=== PATIENT | female | born 1985 | race Caucasian/White ===

== ENCOUNTER 2022-06-12 14:01 | Emergency (ER) | payer MEDICAID ==
[~2022-06-12] VITALS: Ht 165.1 cm; Wt 104.0 kg
[2022-06-12 18:56] LABS: CLARITY URINE CLEAR (CLEAR); COLOR URINE DARK YELLOW (YELLOW); KETONES URINE NEGATIVE (NEGATIVE); LEUKOCYTE ESTERASE URINE 3+ (NEGATIVE); NITRITE URINE POSITIVE (NEGATIVE); OCCULT BLOOD URINE 1+ (NEGATIVE); PH URINE 6.5 (4.5-8.0); PROTEIN URINE NEGATIVE (NEGATIVE); SPECIFIC GRAVITY URINE 1.003 (1.005-1.030)
[2022-06-12] MEDS ORDERED: CEPHALEXIN 250MG CAPSULE PO NR (19:45)
[2022-06-12] MEDS ORDERED: ACETAMINOPHEN 325MG TABLET PO NR (19:45)
[2022-06-12 19:51] LABS: UCG SCREEN NEGATIVE
[2022-06-12] MEDS ORDERED: CEPH500C2 MT (20:04)
[2022-06-12 20:07] VITALS: BP 140/81
== END 2022-06-12 20:13 | disposition home or self-care (01) ==
LOC: ER 14:01
DX: N39.0 Urinary tract infection, site not specified (principal); B96.20 Unspecified Escherichia coli [E. coli] as the cause of diseases classified elsewhere; I10 Essential (primary) hypertension; E11.9 Type 2 diabetes mellitus without complications
CPT/HCPCS: 81003; 81025; 87186; 99283